=== PATIENT | female | born 1940 | race Caucasian/White ===

== ENCOUNTER 2018-01-14 07:08 | Day surgery (SDC) | payer MEDICARE ==
[~2018-01-14] VITALS: Ht 158.8 cm; Wt 54.5 kg
[2018-01-14] VITALS (10 sets, daily range): BP systolic 129–162; BP diastolic 55–88; PULSE 55–88; RESP 16–20; TEMP 97.8–98.4; O2SAT 91–98
[~2018-01-14 07:08] MED LIST: 1-ME1LIQ PO; CHLO50TA PO; CLON.1 PO; HYDR200T42 PO; LISI-363 PO; LORA0.5T PO; MAGN400T PO; MULTCAP PO; POTA10TA48 PO; SYNT112T PO; SYNT125T PO
[2018-01-14] MEDS ORDERED: IODIXANOL 320 MG/ML 50 ML VIAL (for RAD SPEC) I-ARTERIAL ONE (07:09)
[2018-01-14] MEDS ORDERED: SYNT112T PO (08:00)
[2018-01-14] MEDS ORDERED: AMLO5TAB2 PO ×2 (08:06→08:10)
[2018-01-14] MEDS ORDERED: CHLO25TA2 PO (08:06)
[2018-01-14] MEDS ORDERED: PLAQ200T PO (08:07)
[2018-01-14] MEDS ORDERED: MAGN400T2 PO (08:08)
[2018-01-14] MEDS ORDERED: POTA10CA PO (08:09)
[2018-01-14] MEDS ORDERED: LORA0.5T PO (08:09)
[2018-01-14 08:15] LABS: AUTOMATED NEUTROPHIL # 4.6 TH/MM3 (1.8-7.7); BASOPHIL # 0.1 TH/MM3 (0-0.2); EOSINOPHIL # 0.1 TH/MM3 (0-0.4); EOSINOPHIL % 1.7 % (0.0-4.0); HEMATOCRIT 46.2 % (35.0-46.0); HEMOGLOBIN 15.7 GM/DL (11.6-15.3); LYMPH % 26.7 % (9.0-44.0); MEAN CELL VOLUME 87.6 FL (80.0-100.0); MEAN CORPUSCULAR HEMOGLOBIN 29.7 PG (27.0-34.0); MEAN CORPUSCULAR HGB CONC 33.9 % (32.0-36.0); MEAN PLATELET VOLUME 8.1 FL (7.0-11.0); MONO % 9.5 % (0.0-8.0); MONOCYTE # 0.7 TH/MM3 (0-0.9); NEUT % 61.1 % (16.0-70.0); PLATELET COUNT 187 TH/MM3 (150-450); RED BLOOD COUNT 5.28 MIL/MM3 (4.00-5.30); RED CELL DISTRIBUTION WIDTH 15.8 % (11.6-17.2); WHITE BLOOD COUNT 7.6 TH/MM3 (4.0-11.0)
[2018-01-14 08:26] LABS: INTERNATIONAL NORMALIZED RATIO 1.1 RATIO; PROTHROMBIN TIME - PATIENT 10.8 SEC (9.8-11.6)
[2018-01-14] MEDS ORDERED: ONDANSETRON HCL 4 MG/2 ML VIAL IV PUSH ONE ×2 (08:30→14:45)
[2018-01-14] MEDS ORDERED: SODIUM CHLOR 0.9% 1000 ML INJ 1,000 ML IV SCH ×2 (08:30→12:30)
[2018-01-14] MEDS ORDERED: LORazepam 2 MG/ML VIAL ONE (09:55)
[2018-01-14] MEDS ORDERED: HEPARIN SODIUM - IV 10,000 UNITS/10 ML VIAL ONE (10:07)
[2018-01-14] MEDS ORDERED: MIDAZOLAM HCL 5 MG/5 ML VIAL ONE ×2 (10:07→10:51)
--- NOTE | 2018-01-14 12:06 | PD.RAD ---
Post Procedure Progress Note Pre Procedure Diagnosis: (1) Fibromuscular dysplasia of renal artery Post Procedure Diagnosis: (1) Fibromuscular dysplasia of renal artery Procedure Date: Jan 14, 2018 Supervising Radiologist: Noah Mckeon Proceduralist/Assist: Jaswant Bangura, RT(R), Angela Chiang RT(R)(CV) Anesthesia: Conscious Sedation Plan of Activity Patient to Unit: ROPU Patient Condition: Good See PACS Report for procedural detail/treatment Vascular-Arterial Procedure Procedure 1 Procedure Site: Bilateral Renal Procedure(s): Angioplasty (bilateral renal artery) Access Closure Site(s): Right vascular closure device Noah Mckeon MD Jan 14, 2018 12:06
[2018-01-14] MEDS ORDERED: ACETAMINOPHEN 325 MG TAB PO PRN (12:15)
[2018-01-14] MEDS ORDERED: oxyCODONE/ACETAMINOPHEN 5 MG/325 MG TAB PO PRN (12:15)
--- NOTE | 2018-01-14 14:09 | RADRPT ---
EXAM DATE/TIME: 01/14/2018 08:52 [facility] COMPARISON: ANGIOGRAM,RENAL,BILAT W/AORTA, March 15, 2016, 9:33. INDICATIONS : Patient presents with renal fibromuscular dysplagia in need of renal angiogram with possible angiopla sty. MEDICAL HISTORY : HTN Anemia Renal FMD Anxiety TIA Hypothyroid Hyperlipedmia SURGICAL HISTORY : Renal stent Tonsillectomy ENCOUNTER: Subsequent ACUITY: 2 months PAIN SCORE: 0/10 LOCATION: n/a FLUORO TIME: 19.2 minutes IMAGE SERIES: 12 ACCESS SITE: Right Femoral artery SEDATION TIME: 90 minutes CONTRAST: 1.) 93 cc Visipaque (iodixanol) MEDICATION(S): 1.) 7.5 mg midazolam (Versed) IV 2.) 2 mg lorazepam (Ativan) IV 3.) 5,000 units Heparin IV DEVICE(S): 1.) Right renal artery 5.0mm x 40mm 75cm TEMPLATE WORKER balloon 2.) Left renal artery 5.0mm x 40mm 75cm TEMPLATE WORKER balloon 3.) Right common femoral artery 6FR Angio-Seal PROCEDURE : 1. Ultrasound-guided puncture of the access site. 2. Angiography of the access site prior to closure device. 3. Conscious sedation with continuous EKG and Oximetry monitoring. 4. Percutaneous closure of the access site. 5. Angiography of the abdominal aorta 6. Angiography of the right renal artery 7. angiography left renal artery 8. Angioplasty the right renal artery 9. Angioplastied left renal artery The risks, benefits and alternatives to the procedure were explained and verbal and written consent w as obtained. The site was prepped in sterile fashion. Full sterile technique was used, including ca p, mask, sterile gloves and gown and a large sterile sheet. Hand hygiene and 2% chlorhexidine and/or betadine/alcohol prep was utilized per protocol for cutaneous antisepsis. Sterile gel and sterile p robe cover were utilized for ultrasound guidance. The skin and subcutaneous tissues were infiltrated with local anesthetic solution. With ultrasound and fluoroscopic guidance the selected artery was punctured and a vascular sheath was placed. The common femoral artery was performed for evaluation prior to percutaneous closure device placement. Right renal artery was performed demonstrating minimal hyperplasia involving the midportion of the st ent. Following this angioplasty was performed with the prescribed balloon. Attention was then turned to the left side where the left renal artery was catheterized in a duplex w as performed demonstrating findings of fibromuscular dysplasia. A 6 German sheath was placed at the o rigin of the vessel and a duplex was performed using the prescribed balloon. Follow angiography demon strates no residual stenosis. An omni-flush catheter was placed in the abdominal aorta and abdominal urogram was performed in the A P projection. The catheter was exchanged for a JB2 catheter Hemostasis was obtained with the prescribed medicated closure device. Conscious sedation was perform ed with the prescribed dosages and duration as above in the presence of an independent trained radiol ogy nurse to assist in the monitoring of the patient. EKG and oximetry remained stable throughout th e procedure. CONCLUSION: Uncomplicated bilateral renal artery angioplasty Noah Mckeon MD on January 14, 2018 at 14:03 Board Certified Radiologist. This report was verified electronically.
== END 2018-01-14 15:05 | disposition home or self-care (01) ==
LOC: HROP 07:08 → HRIP 07:09 → HROP 15:05
PROVIDERS: ATTEND Internal Medicine
DX: I77.3 Arterial fibromuscular dysplasia (principal); I10 Essential (primary) hypertension; E03.9 Hypothyroidism, unspecified; F41.9 Anxiety disorder, unspecified; Z86.73 Personal history of transient ischemic attack (TIA), and cerebral infarction without residual deficits
CPT/HCPCS: 36252; 37246; 37247; 76937; 85025; 85610; 85730; 99152; 99153; C1725; C1760; C1769; C1887; C1894; J1644; J2060; J2250; J2405; J7030; Q9967

== ENCOUNTER 2018-01-21 13:13 | Day surgery (SDC) | payer MEDICARE ==
[~2018-01-21 13:13] MED LIST changes: -1-ME1LIQ PO; +AMLO5TAB2 PO; +CHLO25TA2 PO; -CHLO50TA PO; -CLON.1 PO; -HYDR200T42 PO; -LISI-363 PO; -MAGN400T PO; +MAGN400T2 PO; -MULTCAP PO; +PLAQ200T PO; +POTA10CA PO; -POTA10TA48 PO; -SYNT125T PO
[2018-01-21 13:30] VITALS: BP 161/88; PULSE 80; RESP 18; TEMP 97.8; O2SAT 94
--- NOTE | 2018-01-21 15:19 | RADRPT ---
EXAM DATE/TIME: 01/21/2018 00:00 [facility] COMPARISON : No previous studies available for comparison. INDICATIONS : FOLLOW UP RENAL ANGIOGRAM OBJECTIVE: Temperature: 97.8 Heart Rate: 80 Blood Pressure: 161/88 Respiratory: 18 Oximetry: 94 PNEUMONIA VACCINE: HISTORY OF PRESENT ILLNESS: ? PAST MEDICAL HISTORY : Renal cell carcinoma. MACULAR DEGERATION PAST SURGICAL HISTORY : RIGHT RENAL NEPHRECTOMY SOCIAL HISTORY : FENOFIBRATE 54 mg q.d. FINASTERIDE 5 mg q.d. GLIMEPRIDE 1 mg q.d. HYDROCODONE 10/325 mg prn MORPHINE ER 15 mg q.d. SIMVASTATIN 40 mg q.h.s. SAXAGLIPTIN METFORMIN mg q.d. AEREDS PHYSICAL EXAMINATION: Groin clean dry without hematoma IMAGING STUDIES: Angiography was reviewed demonstrating good result following angioplasty bilaterally ASSESSMENT: Uncomplicated angioplasty of the renal arteries PLAN: The patient is to continue followup with her primary care physician for management of hypertension TIMESPENT: 15 minutes Noah Mckeon MD on January 21, 2018 at 15:04 Board Certified Radiologist. This report was verified electronically.
== END 2018-01-21 14:08 | disposition home or self-care (01) ==
LOC: HROP 13:13 → HRIP 13:17 → HROP 14:08
PROVIDERS: ATTEND Radiology Body Imaging
DX: I70.1 Atherosclerosis of renal artery (principal)
CPT/HCPCS: 99212; G0463